=== PATIENT | female | born 1950 | race African-American/Black ===

== ENCOUNTER 2016-10-28 14:00 | Outpatient (RCR) | payer OTHER | END 2016-11-19 | disposition home or self-care (01) | LOC: PTY 14:00 | PROVIDERS: ATTEND Internal Medicine | DX: M75.02 Adhesive capsulitis of left shoulder (principal); R53.1 Weakness; R03.0 Elevated blood-pressure reading, without diagnosis of hypertension | CPT/HCPCS: 97110; 97140; 97162; G0283 ==

== ENCOUNTER 2016-12-04 14:33 | Outpatient (RCR) | payer OTHER | END 2016-12-17 | disposition home or self-care (01) | LOC: PTY 14:33 | PROVIDERS: ATTEND Internal Medicine | DX: M75.02 Adhesive capsulitis of left shoulder (principal); R53.1 Weakness; R03.0 Elevated blood-pressure reading, without diagnosis of hypertension | CPT/HCPCS: 97110; 97140; G0283 ==

== ENCOUNTER 2016-12-25 14:15 | Outpatient (RCR) | payer OTHER | END 2017-01-17 | disposition home or self-care (01) | LOC: PTY 14:15 | DX: M75.02 Adhesive capsulitis of left shoulder (principal); R53.1 Weakness; R03.0 Elevated blood-pressure reading, without diagnosis of hypertension | CPT/HCPCS: 97110; 97140; 97161; G0283 ==

== ENCOUNTER 2017-03-06 11:23 | Outpatient (RCR) | payer OTHER | END 2017-03-19 | disposition home or self-care (01) | LOC: PTY 11:23 | DX: M54.81 Occipital neuralgia (principal); M62.838 Other muscle spasm | CPT/HCPCS: 97110; 97140; G0283 ==

== ENCOUNTER 2017-04-03 14:40 | Outpatient (RCR) | payer OTHER | END 2017-04-18 | disposition home or self-care (01) | LOC: PTY 14:40 | DX: M75.02 Adhesive capsulitis of left shoulder (principal); M54.81 Occipital neuralgia; M62.838 Other muscle spasm | CPT/HCPCS: 97110; 97140; G0283 ==

== ENCOUNTER 2017-04-28 14:27 | Outpatient (RCR) | payer OTHER | END 2017-05-19 | disposition home or self-care (01) | LOC: PTY 14:27 | DX: M54.81 Occipital neuralgia (principal); M62.838 Other muscle spasm | CPT/HCPCS: 97110; 97140; G0283 ==

== ENCOUNTER 2017-05-26 13:45 | Outpatient (RCR) | payer OTHER | END 2017-06-19 | disposition home or self-care (01) | LOC: PTY 13:45 | DX: M75.02 Adhesive capsulitis of left shoulder (principal); M54.81 Occipital neuralgia; M62.838 Other muscle spasm; R53.1 Weakness | CPT/HCPCS: 97110; 97140; G0283 ==